=== PATIENT | male | born 1985 | race Caucasian/White ===

== ENCOUNTER 2017-09-17 08:55 | Day surgery (SDC) | payer OTHER ==
[2017-09-17] MEDS ORDERED: LIDOCAINE 2% MDV (20MG/ML) 20ML VIAL IV ONE (08:56)
[2017-09-17] MEDS ORDERED: PROPOFOL 10 MG/ML VIAL IV ONE (08:56)
--- NOTE | 2017-09-18 13:50 | Operative Note ---
DATE OF SURGERY: 09/17/2017 OPERATION: COLONOSCOPY to the cecum and terminal ileum with multiple biopsies. INDICATION: History of Crohn disease. The patient's last colonoscopy was completed in [place] in 2014. He returns at this time for surveillance. He restarted his Humira approximately 2 months ago after being off for a period of time. Clinically he is doing better. He states that his loose stools have resolved and he is having minimal if any pain. ANESTHESIA: Intravenous sedation was administered by the department of anesthesiology and included Diprivan titrated to effect. PROCEDURE: Following informed consent from this alert individual including a discussion of the risks and benefits of the procedure and an opportunity for the patient to ask questions, the patient was in the left lateral decubitus position. A digital rectal examination was performed. There was some mild stenosis noted. Following this, the Olympus [id number] video colonoscope was inserted into the rectum without resistance. The rectal mucosa itself had a normal appearance with normal folds and distensibility. The colonoscope was advanced up through the bowel to the level of the cecum without much difficulty. Throughout the bowel the mucosa appeared normal, the folds were normal, and the bowel was fairly well distensible. The mucosal pattern was normal. Upon reaching the cecum, the ileocecal valve was noted and seemed edematous with focal mild erythema and some scarring. The ileocecal valve was cannulated; however, the terminal ileum could not be cannulated with the endoscope although well visualized through the ileocecal valve region. Biopsies from the terminal ileum were taken. It appeared inflamed with edema, erythema, and superficial ulcerations. After biopsies from the ileum were obtained, a second set of biopsies were taken from the ileocecal valve itself which again appeared somewhat edematous and erythematous. The cecum was otherwise normal. Retroflexion in the cecum was endoscopically unremarkable. The colon preparation overall was good. From the base of the cecum, the colonoscope was then withdrawn. Random biopsies were taken from the right and left colon upon withdrawal. Initially there was thought to be some very small punctate superficial ulcerations in the left colon but on withdrawal, these were not noted to be as prevalent. Retroflexion in the rectum revealed an inflammatory polyp measuring perhaps 3-4 mm in size at the most distal rectum, and this was removed with cold biopsy forceps. Superficial ulceration was also noted in the distal rectum. The endoscope was then straightened and withdrawn. The patient tolerated the procedure well and was returned to the recovery area in stable condition. IMPRESSION: 1. Ileitis noted as described above, biopsies taken. 2. Somewhat narrowed ileocecal valve precluding advancement of the endoscope into the ileum although it was visualized from the level of the ileocecal valve as described above. 3. A 3-4 mm polyp noted at the most distal rectum removed with biopsy forceps. This appeared to be inflammatory. 4. Superficial rectal ulceration at the distal rectum just at the level of the anorectal junction. RECOMMENDATIONS: Further recommendations will be forthcoming pending results of pathology obtained today. The patient will be following up in my office in the next 2-3 months to assess progress. Clinically, he states that he is doing well with Humira. Followup will also be with Dr. Sancehz. As always, thank you for allowing me to participate in the care of your patient. CC: Dr. Ambrocio HAJI
== END 2017-09-17 11:22 | disposition home or self-care (01) ==
LOC: HOP 08:55
PROVIDERS: ATTEND Internal Medicine Gastroenterology
DX: Z12.11 Encounter for screening for malignant neoplasm of colon (principal); K62.1 Rectal polyp; K62.6 Ulcer of anus and rectum; K52.89 Other specified noninfective gastroenteritis and colitis; K50.90 Crohn's disease, unspecified, without complications